=== PATIENT | male | born 1965 | race Caucasian/White ===

== ENCOUNTER → 2022-05-27 11:43 | Outpatient (CLI) | payer OTHER, SELFPAY ==
[2022-05-27 12:28] LABS: COVID19 -Nasal RAPID Negative (Negative)
== END ==
PROVIDERS: Referring Provider Internal Medicine; Visit Provider Internal Medicine
DX: Z20.822 Contact with and (suspected) exposure to COVID-19 (principal)
CPT/HCPCS: 87635; C9803

== ENCOUNTER → 2022-05-27 11:46 | Outpatient (CLI) | payer OTHER, SELFPAY ==
--- NOTE | 2022-05-29 16:21 | PM.PFT.1 ---
Pulmonary Function Test Referral & Results Date Patient Seen: 05/27/22 Requesting provider: Patric Albright Results: The spirometry demonstrates an FVC of 3.99 L which is 70% of predicted. The FEV1 was measured at 2.31 L which is 59% of predicted. The FEV1/FVC ratio was 58 which is 75% of predicted. Following the administration of bronchodilator there was a 71% improvement in FEV1 and a 620% improvement in FEF 25-75%. Lung volumes show an SVC of 4.41 L which is 88% of predicted. The diffusing capacity was measured at 31.63 which is 93% of predicted. The maximum voluntary ventilation was reduced Interpretation: This study demonstrates moderate obstructive lung disease with evidence very significant benefit following bronchodilator as above Clinical correlation suggested
== END ==
PROVIDERS: Referring Provider Chiropractor; Visit Provider Chiropractor
DX: J45.998 Other asthma (principal); Z20.822 Contact with and (suspected) exposure to COVID-19; F17.210 Nicotine dependence, cigarettes, uncomplicated
CPT/HCPCS: 87635; 94060; 94726; 94729; C9803